=== PATIENT | female | born 1955 | race Caucasian/White ===

== ENCOUNTER 2018-06-11 10:28 | Emergency (ER) | payer BC ==
[2018-06-11] MEDS: NAPROXEN 500 MG TAB PO (11:42)
== END 2018-06-11 14:10 | disposition home or self-care (01) ==
LOC: FTE 10:28
DX: S49.91XA Unspecified injury of right shoulder and upper arm, initial encounter (principal); I10 Essential (primary) hypertension; E03.9 Hypothyroidism, unspecified; W18.39XA Other fall on same level, initial encounter; Y92.89 Other specified places as the place of occurrence of the external cause; Z79.82 Long term (current) use of aspirin; Z96.643 Presence of artificial hip joint, bilateral
CPT/HCPCS: 73030; 73030-RT; 99283-25